=== PATIENT | female | born 1960 | race Two or more races ===

== ENCOUNTER 2017-06-28 10:23 | Outpatient (CLI) | payer OTHER | END 2017-06-28 10:25 | disposition home or self-care (01) | LOC: RAD 10:23 | DX: S92.902A Unspecified fracture of left foot, initial encounter for closed fracture (principal) ==

== ENCOUNTER 2018-03-20 11:56 | Outpatient (CLI) | payer OTHER | END 2018-03-20 14:43 | disposition home or self-care (01) | LOC: MRI 11:56 | DX: R41.3 Other amnesia (principal) | CPT/HCPCS: 70553; A9575 ==

== ENCOUNTER → 2018-12-26 | Outpatient (CLI) | payer OTHER | END | disposition home or self-care (01) | LOC: TOM 11:50 | DX: I67.1 Cerebral aneurysm, nonruptured (principal) ==

== ENCOUNTER 2019-03-07 08:30 | Outpatient (CLI) | payer OTHER | END 2019-03-07 08:34 | disposition home or self-care (01) | LOC: TOM 08:30 | DX: J00-J99 Diseases of the respiratory system (principal) ==

== ENCOUNTER 2021-02-09 18:21 | Emergency (ER) | payer OTHER ==
[~2021-02-09] VITALS: Ht 157.5 cm; Wt 64.9 kg
[2021-02-09] MEDS ORDERED: METFORMIN (18:49)
[2021-02-09] MEDS ORDERED: LANTUS (18:49)
[2021-02-09] MEDS ORDERED: [UNRECOGNIZED DRUG - OTHER] (18:50)
[2021-02-10] MEDS ORDERED: MECLIZINE HCL25 MG PO (00:56)
== END 2021-02-10 01:00 | disposition home or self-care (01) ==
LOC: ER 18:21
DX: E11.65 Type 2 diabetes mellitus with hyperglycemia (principal); R42 Dizziness and giddiness; Z79.84 Long term (current) use of oral hypoglycemic drugs; I10 Essential (primary) hypertension

== ENCOUNTER 2021-04-14 08:00 | Outpatient (CLI) | payer OTHER ==
[~2021-04-14 08:00] MED LIST: LANTUS; MECLIZINE HCL25 MG PO; METFORMIN; [UNRECOGNIZED DRUG - OTHER]
== END 2021-04-14 08:30 | disposition home or self-care (01) ==
LOC: PPH VACUNA 08:00
PROVIDERS: ATTEND Emergency Medicine Pediatric Emergency Medicine
DX: Z23 Encounter for immunization (principal)

== ENCOUNTER 2021-09-01 10:04 | Outpatient (CLI) | payer OTHER | END 2021-09-01 10:09 | disposition home or self-care (01) | LOC: LAB 10:04 | PROVIDERS: ATTEND Radiology Diagnostic Radiology | DX: R41.3 Other amnesia (principal) ==

== ENCOUNTER 2022-01-06 11:50 | Outpatient (CLI) | payer OTHER | END 2022-01-06 11:52 | disposition home or self-care (01) | LOC: LAB 11:50 | PROVIDERS: ATTEND Radiology Diagnostic Radiology | DX: G89.0 Central pain syndrome (principal) ==

== ENCOUNTER 2022-01-08 07:41 | Outpatient (CLI) | payer OTHER ==
[2022-01-11] MEDS ORDERED: CORTISPORIN EAR10 M1 OT (14:13)
[2022-01-11] MEDS ORDERED: CIPRO500 MG PO (14:13)
== END 2022-01-08 08:15 | disposition home or self-care (01) ==
LOC: MRI 07:41
PROVIDERS: ATTEND Neuromusculoskeletal Medicine & OMM
DX: G89.0 Central pain syndrome (principal)
CPT/HCPCS: 70553

== ENCOUNTER → 2022-01-11 | Emergency (ER) | payer OTHER ==
[~2022-01-11] VITALS: Ht 157.5 cm; Wt 62.6 kg
[~2022-01-11] MED LIST changes: +CIPRO500 MG PO; +CORTISPORIN EAR10 M1 OT
== END | disposition home or self-care (01) ==
LOC: ER 10:14
DX: H60.22 Malignant otitis externa, left ear (principal); H66.92 Otitis media, unspecified, left ear; E11.9 Type 2 diabetes mellitus without complications; Z79.4 Long term (current) use of insulin; Z79.84 Long term (current) use of oral hypoglycemic drugs; I10 Essential (primary) hypertension; Z88.8 Allergy status to other drugs, medicaments and biological substances

== ENCOUNTER 2022-06-03 11:09 | Emergency (ER) | payer OTHER ==
[~2022-06-03] VITALS: Ht 160 cm; Wt 61.2 kg
== END 2022-06-03 15:14 | disposition home or self-care (01) ==
LOC: ER 11:09
DX: E11.65 Type 2 diabetes mellitus with hyperglycemia (principal); Z79.4 Long term (current) use of insulin; Z88.8 Allergy status to other drugs, medicaments and biological substances

== ENCOUNTER 2023-01-06 15:38 | Emergency (ER) | payer OTHER ==
[~2023-01-06] VITALS: Ht 167.6 cm; Wt 58.1 kg
[2023-01-06 17:35] LABS: ABG PH 7.432 (7.35-7.45); ABG pCO2 44.3 mmHg (35-45); BASE EXCESS 3.9 mmol/l; BICARBONATE 28.8 mmol/l (23-25); SaO2 95.3 %; Tco2 30.2 mmol/l
[2023-01-06 17:57] LABS: HEMATOCRIT 38.7 % (36.0-45.00); HEMOGLOBIN 12.6 g/dL (12.0-15.00); MEAN CELL VOLUME 85.8 fL (80.00-100.00); MEAN CORPUSCULAR HEMOGLOBIN 27.9 pg (27.00-32.0); MEAN CORPUSCULAR HGB CONC 32.5 g/dl (32.0-36.0); PLATELET COUNT 449 K/uL (150-450); RED BLOOD COUNT 4.51 M/uL (4.00-6.00); RED CELL DISTRIBUTION WIDTH 13.9 % (11.5-14.5)
[2023-01-06 18:04] LABS: ERYTHROCYTE SEDIMENTATION RATE 56 mm/hr
[2023-01-06 18:22] LABS: INR 1.12; PARTIAL THROMBOPLASTIN TIME 30.2 SECONDS (22.0-34.0); PROTHROMBIN TIME 11.7 SECONDS (9.0-11.5)
[2023-01-06 18:27] LABS: ALBUMIN 3.3 gm/dL (3.4-5.0); BILIRUBIN TOTAL 0.27 mg/dL (0.3-1.2); CALCIUM 9.4 mg/dL (8.5-10.1); CREATININE SERUM 0.75 mg/dL (0.55-1.02); GFR 77.8; GLOBULINA 4.4 G/DL (2.4-3.5); POTASSIUM 3.43 mEq/L (3.5-5.1); TOTAL PROTEIN 7.7 gm/dL (6.4-8.2)
[2023-01-06 18:44] LABS: URINE APPEARANCE Clear; URINE BILIRRUBIN Negative (NEGATIVE); URINE BLOOD Negative; URINE COLOR Yellow; URINE LEUKOCYTE Negative; URINE NITRATE Negative; URINE PROTEIN 30 (NEGATIVE)
[2023-01-06 18:48] LABS: URINE BACTERIA 216.6 uL (0.0-1933); URINE EPITHELIAL CELLS 10.5 uL (0.0-38.8); URINE RBC 2.7 uL (0.0-20.8); URINE WBC 11.5 uL (0.0-23.2)
[2023-01-06 18:52] LABS: allen test SATISFACTORY; o2 21 %; puncture site RADIAL LEFT
[2023-01-06 18:52] LABS: URINE GLUCOSE >=1000 MG/DL (NEGATIVE)
== END 2023-01-06 22:40 | disposition home or self-care (01) ==
LOC: ER 15:38
DX: E11.65 Type 2 diabetes mellitus with hyperglycemia (principal); Z79.4 Long term (current) use of insulin; L03.818 Cellulitis of other sites; Z88.8 Allergy status to other drugs, medicaments and biological substances
CPT/HCPCS: 71045; 73630; 82803; 96372; 99284; J1815; J1885

== ENCOUNTER 2023-01-08 11:51 | Emergency (ER) | payer OTHER ==
[~2023-01-08] VITALS: Ht 160 cm; Wt 73.5 kg
[2023-01-08] MEDS ORDERED: LISINOPRIL40 MG PO (11:59)
[2023-01-08] MEDS ORDERED: GABAPENTIN300 M2 PO (11:59)
[2023-01-08] MEDS ORDERED: LOSARTAN POTASS50 MG PO (11:59)
[2023-01-08] MEDS ORDERED: TRULICITY0.75 MG/0. SQ (12:00)
[2023-01-08 14:34] LABS: HEMATOCRIT 36.5 % (36.0-45.00); HEMOGLOBIN 12.1 g/dL (12.0-15.00); MEAN CELL VOLUME 86.4 fL (80.00-100.00); MEAN CORPUSCULAR HEMOGLOBIN 28.6 pg (27.00-32.0); MEAN CORPUSCULAR HGB CONC 33.1 g/dl (32.0-36.0); PLATELET COUNT 436 K/uL (150-450); RED BLOOD COUNT 4.22 M/uL (4.00-6.00); RED CELL DISTRIBUTION WIDTH 13.8 % (11.5-14.5)
[2023-01-08 14:35] LABS: ERYTHROCYTE SEDIMENTATION RATE 41 mm/hr
[2023-01-08 14:42] LABS: URINE APPEARANCE Clear; URINE BILIRRUBIN Negative (NEGATIVE); URINE BLOOD Negative; URINE COLOR Yellow; URINE LEUKOCYTE Negative; URINE NITRATE Negative; URINE PROTEIN 30 (NEGATIVE)
[2023-01-08 14:45] LABS: URINE RBC 4.3 uL (0.0-20.8); URINE WBC 7.5 uL (0.0-23.2)
[2023-01-08 14:54] LABS: URINE GLUCOSE >=1000 MG/DL (NEGATIVE)
[2023-01-08 14:54] LABS: ALBUMIN 3.1 gm/dL (3.4-5.0); BILIRUBIN TOTAL 0.31 mg/dL (0.3-1.2); CALCIUM 9.2 mg/dL (8.5-10.1); CREATININE SERUM 0.65 mg/dL (0.55-1.02); GFR 91.76; GLOBULINA 3.9 G/DL (2.4-3.5); POTASSIUM 4.18 mEq/L (3.5-5.1)
== END 2023-01-08 17:03 | disposition home or self-care (01) ==
LOC: ER 11:51
PROVIDERS: Emergency Medicine
DX: L97.529 Non-pressure chronic ulcer of other part of left foot with unspecified severity (principal); L02.612 Cutaneous abscess of left foot; E11.9 Type 2 diabetes mellitus without complications; Z79.4 Long term (current) use of insulin; Z79.84 Long term (current) use of oral hypoglycemic drugs; Z20.822 Contact with and (suspected) exposure to COVID-19; Z88.8 Allergy status to other drugs, medicaments and biological substances
CPT/HCPCS: 36415; 73630; 96365; 99284; J1815